=== PATIENT | male | born 1985 | race Native Hawaiian/Other Pacific Islander ===

== ENCOUNTER 2018-12-27 04:48 | Emergency (ER) | payer OTHER ==
[2018-12-27 06:30] VITALS: O2SAT 100
--- NOTE | 2018-12-27 06:37 | C.PDOC ---
History Of Present Illness 33 year old male presents to the ED c/o right sided rib cage and RUQ abdominal pain s/p fall that occurred while at work. Patient states he was carrying a heavy object up the stairs when he fell and landed on his right side. Patient states he took Motrin at home for pain, Patient states pain worsens with movement. Patient denies LOC, headache , head injury, SOB, palpitations, weakness, numbness. - HPI Time Seen by Provider: 12/27/18 05:57 Chief Complaint (Nursing): Rib Injury History Per: Patient History/Exam Limitations: no limitations Onset/Duration Of Symptoms: Hrs Injury Occurred (Timing): Just Before Arrival Location Of Injury: Right: Abdomen, Chest Recent travel outside of the [place]: No Additional History Per: Patient - Fall Fall:Prior To Injury: Slipped Past Medical History Reviewed: Historical Data, Nursing Documentation, Vital Signs Vital Signs: Last Vital Signs Temp 98.1 F 12/27/18 06:29 Pulse 60 12/27/18 06:29 Resp 18 12/27/18 06:29 BP 112/77 12/27/18 06:29 Pulse Ox 100 12/27/18 06:29 - Medical History PMH: No Chronic Diseases Surgical History: No Surg Hx Family History: States: Unknown Family Hx - Social History Hx Alcohol Use: No Hx Substance Use: No Review Of Systems Constitutional: Negative for: Fever, Chills Eyes: Negative for: Vision Change Cardiovascular: Positive for: Chest Pain. Negative for: Palpitations Respiratory: Negative for: Cough, Shortness of Breath Gastrointestinal: Positive for: Abdominal Pain. Negative for: Nausea, Vomiting Musculoskeletal: Negative for: Neck Pain, Back Pain Skin: Negative for: Rash Neurological: Negative for: Weakness, Numbness, Headache, Dizziness Physical Exam - Physical Exam Appears: Non-toxic, No Acute Distress Skin: Normal Color, Warm, Dry, No Rash, No Ecchymosis Head: Atraumatic, Normacephalic Eye(s): bilateral: Normal Inspection, PERRL, EOMI Oral Mucosa: Moist Neck: Normal ROM, No Midline Cervical Tenderness, Supple Chest: Symmetrical, Tenderness (right sided 11th and 12th rib) Cardiovascular: Rhythm Regular, No Friction Rub Respiratory: Normal Breath Sounds, No Rales, No Rhonchi, No Wheezing Gastrointestinal/Abdominal: Bowel Sounds (active), Soft, Tenderness (RUQ ), Gua rding (voluntary), No Rebound Back: No CVA Tenderness, No Vertebral Tenderness Extremity: Normal ROM, No Tenderness, No Swelling Neurological/Psych: Oriented x3, Normal Speech, Normal Cognition, Normal Motor Gait: Steady ED Course And Treatment - Laboratory Results Result Diagrams: 12/27/18 06:48 O2 Sat by Pulse Oximetry: 100 (ON RA) Pulse Ox Interpretation: Normal Medical Decision Making Medical Decision Making: Plan: * CT abd/pelvis * Labs * CXR Disposition - Disposition Disposition Time: 06:59 Condition: STABLE Forms: [employer] (Serbian) - Clinical Impression Clinical Impression: Abdominal 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 - Scribe Statement The provider has reviewed the documentation as recorded by the Scribe Vishal Benitez All medical record entries made by the Scribe were at my direction and personally dictated by me. I have reviewed the chart and agree that the record accurately reflects my personal performance of the history, physical exam, medical decision making, and the department course for this patient. I have also personally directed, reviewed, and agree with the discharge instructions and disposition. Physician Patient Turnover Patient Signed Over To: Angelica Luque Handoff Comments: Pending CT results, CXR, reeval and dispo
[2018-12-27 06:50] LABS: BASO # 0.1 K/uL (0.0-0.2); BASO % 1.1 % (0.0-2.0); EOS # 0.3 K/uL (0.0-0.7); EOS % 5.4 % (0.0-4.0); HEMOGLOBIN 12.1 g/dL (12.0-18.0); LYMPH # 1.8 K/uL (1.0-4.3); LYMPH % 30.7 % (20.0-40.0); MEAN CELL VOLUME 58.4 fL (80.0-94.0); MEAN CORPUSCULAR HEMOGLOBIN 18.6 pg (27.0-31.0); MONO # 0.5 K/uL (0.0-0.8); MONO % 7.7 % (0.0-10.0); NEUT # 3.3 K/uL (1.8-7.0); NEUT % 55.1 % (50.0-75.0); NRBC % 0.1 % (0.0-2.0); RBC 6.5 Mil/uL (4.40-5.90); RED CELL DISTRIBUTION WIDTH 16.2 % (11.5-14.5)
[2018-12-27 07:05] LABS: ALB/GLOB RATIO 1.5 (1.0-2.1); ALBUMIN 4.4 g/dL (3.5-5.0); ALT/SGPT 22 U/L (21-72); AST/SGOT 19 U/L (17-59); CALCIUM 8.7 mg/dl (8.6-10.4); GFR NON-AFRICAN AMERICAN > 60; LIPASE 66 U/L (23-300)
[2018-12-27 07:06] LABS: BLOOD UREA NITROGEN 20 mg/dL (9-20)
[2018-12-27] MEDS ORDERED: Iodixanol 320 MG/ML 100 ML BOTTLE IV ONE (07:29)
--- NOTE | 2018-12-27 09:12 | CT ---
Date of service: 12/27/2018 PROCEDURE: CT Chest, Abdomen and Pelvis with intravenous contrast HISTORY: abd trauma, rib pain, r/o liver laceration COMPARISON: None available. TECHNIQUE: IV dose administered: 100 mL Visipaque 320 Radiation dose: Total exam DLP = 536.58 mGy-cm. This CT exam was performed using one or more of the following dose reduction techniques: Automated exposure control, adjustment of the mA and/or kV according to patient size, and/or use of iterative reconstruction technique. FINDINGS: CT CHEST WITH CONTRAST: LUNGS: Clear. No nodule, mass or consolidation. MEDIASTINUM: Unremarkable. Normal caliber aorta and pulmonary arterial trunk. No aortic dissection. Normal size heart. LYMPH NODES: Unremarkable. PLEURA: Unremarkable. No pneumothorax. No pleural fluid. BONES: No rib fracture. Thoracic vertebrae are intact. OTHER FINDINGS: None. CT ABDOMEN AND PELVIS: LIVER: No laceration. No hematoma. Normal size, contour and attenuation. GALLBLADDER AND BILE DUCTS: Unremarkable. PANCREAS: Unremarkable. No gross lesion or ductal dilatation. SPLEEN: No laceration or hematoma. ADRENALS: Unremarkable. No mass. KIDNEYS AND URETERS: Unremarkable. No hydronephrosis. No solid mass. VASCULATURE: No aortic atherosclerotic calcification or mural plaque present. Unremarkable. No aortic aneurysm. BOWEL: Unremarkable. No obstruction. No gross mural thickening. Mild sigmoid diverticulosis. No evidence of diverticulitis. No other abnormal bowel loops. No bowel obstruction. APPENDIX: Normal appendix. PERITONEUM: Unremarkable. No free fluid. No free air. LYMPH NODES: Unremarkable. No enlarged lymph nodes. BLADDER: Unremarkable. REPRODUCTIVE: Normal prostate BONES: No acute fracture. OTHER FINDINGS: None. IMPRESSION: No evidence of thoracic or abdominal/pelvic visceral injury. No evidence of rib fracture. Unremarkable examination.
[2018-12-27 09:58] VITALS: BP 102/65; PULSE 62; RESP 16; TEMP 98.8
[2018-12-27] MEDS ORDERED: Lidocaine 5% Patch TD ONE (11:09)
--- NOTE | 2018-12-27 15:10 | RAD ---
Date of service: 12/27/2018 HISTORY: rib pain COMPARISON: No prior. TECHNIQUE: Chest PA and lateral FINDINGS: LUNGS: No active pulmonary disease. PLEURA: No significant pleural effusion identified. No pneumothorax apparent. CARDIOVASCULAR: No aortic atherosclerotic calcification present. Normal cardiac size. No pulmonary vascular congestion. OSSEOUS STRUCTURES: No significant abnormalities. VISUALIZED UPPER ABDOMEN: Normal. OTHER FINDINGS: None. IMPRESSION: No active disease.
[2018-12-28] MEDS ORDERED: Lidocaine 5% Patch TD SCH (10:00)
== END 2018-12-27 11:12 | disposition home or self-care (01) ==
LOC: C.ER 04:48
DX: S29.011A Strain of muscle and tendon of front wall of thorax, initial encounter (principal); S39.91XA Unspecified injury of abdomen, initial encounter; W10.9XXA Fall (on) (from) unspecified stairs and steps, initial encounter; Y92.89 Other specified places as the place of occurrence of the external cause; Y99.0 Civilian activity done for income or pay
CPT/HCPCS: 71046; 71260; 74177; 80053; 83690; 85025; 99285; Q9967